=== PATIENT | male | born 1975 | race African-American/Black ===

== ENCOUNTER 2019-02-09 08:31 | Day surgery (SDC) | payer BC ==
[2019-02-09 08:39] LABS: Absolute Lymphocytes (CBC) 2.2 K/uL (0.7-4.9); Basophils % 0.6 % (0-1.3); Eosinophils % 4.5 % (0-4.4); Hematocrit 47.5 % (39.6-49.0); Lymphocytes % 35.3 % (15.3-44.8); MPV 8.8 fL (7.6-11.3); Monocytes % 12.4 % (3.3-12.3)
[2019-02-09 09:08] LABS: Potassium 4.7 mmol/L (3.5-5.1)
--- NOTE | 2019-02-09 09:13 | RAD REPORT ---
EXAM DESCRIPTION: RAD - Chest Pa And Lat (2 Views) - 02/09/2019 8:31 am CLINICAL HISTORY: Preop chest, pending soft tissue mass removal from the left leg COMPARISON: February 2010 TECHNIQUE: PA and lateral views of the chest were obtained. FINDINGS: The lungs are clear. Heart size is normal and central vasculature is within normal limit s. No pleural effusion or pneumothorax seen. No acute bony finding noted. No aortic abnormality. No suspicious change from comparison. IMPRESSION: No acute cardiopulmonary process.
[2019-02-09] MEDS ORDERED: LABETALOL HCL 100 MG/20 ML ONE (09:14)
[2019-02-09] MEDS ORDERED: CEFAZOLIN/SWI 1gm 1 GM/10 ML SYR ONE (09:16)
[2019-02-09] MEDS ORDERED: Ringers Lactate 1,000 ML IV ONE (09:16)
[2019-02-09] MEDS ORDERED: BUPIVACA 0.5%/EPI 0.0005%/PF 10 ML VIAL IJ ONE (10:07)
[2019-02-09] MEDS ORDERED: MIDAZOLAM HCL 2 MG/2 ML INJ ONE (10:15)
[2019-02-09] MEDS ORDERED: PROPOFOL 200 MG/20 ML VIAL IV ONE (10:15)
[2019-02-09] MEDS ORDERED: LIDOCAINE 2% MPF 5 ML VIAL ONE (10:15)
[2019-02-09] MEDS ORDERED: FENTANYL CITR 100 MCG/2 ML ONE (10:15)
[2019-02-09] MEDS ORDERED: ONDANSETRON 4 MG/2 ML VIAL ONE (10:15)
--- NOTE | 2019-02-09 15:45 | OP ---
Date of Procedure: 02/09/2019 Surgeon: Joshua Vargas MD Preoperative Diagnosis: Left thigh mass. Postoperative Diagnosis: Left thigh mass. Procedure: Wide excision, left thigh mass with layered closure, 5 x 3 cm. Estimated Blood Loss: Minimal. Specimen: Left thigh mass. Finding: As above. Anesthesia: General. Complications: None. Disposition: The patient tolerated the procedure in stable condition, taken to Recovery in good gene ral condition. Procedure In Detail: The patient was brought to the OR and placed in supine position. General anest hesia was begun. The patient was placed in left lithotomy position, prepped and draped in the usual sterile fashion. Then, 0.5% Marcaine infiltrated locally. A 15-blade was used to make a 5 x 3 cm in cision, length of the incision was 5 cm. Subcutaneous tissue divided and entire mass that was pedunc ulated, excised through the deep to the subcutaneous tissue and sent to Pathology. Wound irrigated. Bleeding controlled with cautery. Flaps created and then 2-0 chromic used to approximate the subcut aneous tissues. Then, 3-0 nylon used to close skin. Sterile dressing was applied. The patient was awakened and taken to Recovery in good general condition. Discharge Note: The patient will go to day surgery and home when stable. Disposition: Home. Condition: Stable. Discharge Instructions: Resume home medications and diet. Activity as tolerated. Remove outer dres sing in 2 days. Shower. Keep wound clean and dry. Follow up in my office in 2 weeks. Call for leslie ointment. Tylenol No. 3, 1 tablet p.o. q.4 p.r.n. pain. Keflex 500 mg p.o. q.6. /MODL Voice ID: [id number] Report ID: [id number]
--- NOTE | 2019-02-09 19:44 | EKG ---
Test Date: 2019-02-09 Test Time: 08:20:46 [employer] Tech: ANUJ MEASUREMENT RESULTS: Intervals: Rate: 63 [place]: 164 QRSD: 96 QT: 364 QTc: 372 [place]: P: 56 [place]: 164 QRS: 44 T: 16 INTERPRETIVE STATEMENTS: Normal sinus rhythm Nonspecific T wave abnormality Abnormal ECG Compared to ECG 01/24/2016 16:51:33 T-wave abnormality now present Electronically Signed On 02-09-19 19:40:37 CDT by Raheem Andre
== END 2019-02-09 11:45 | disposition home or self-care (01) ==
LOC: OR 08:31
PROVIDERS: ATTEND Surgery
PROC: 0JBM0ZZ Excision of Left Upper Leg Subcutaneous Tissue and Fascia, Open Approach (ICD-10-PCS; principal; 2019-02-09 10:00)
DX: R22.42 Localized swelling, mass and lump, left lower limb (principal); I10 Essential (primary) hypertension
CPT/HCPCS: 36415; 71046; 80048; 85025; 88304; 88305; 93005; J0690; J2250; J2405; J2704; J3010

== ENCOUNTER 2023-03-15 05:56 | Day surgery (SDC) | payer BC ==
[2023-03-13 11:20] LABS: Absolute Lymphocytes (CBC) 1.9 K/uL (0.7-4.9); Hematocrit 46.5 % (39.6-49.0); Lymphocytes % 35.9 % (15.3-44.8); MCV 86.2 fL (80-100); MPV 7.8 fL (7.6-11.3); RBC Red Blood Cell Count 5.39 M/uL (4.33-5.43)
[2023-03-13 11:34] LABS: Potassium 3.9 mEq/L (3.5-5.1)
--- NOTE | 2023-03-13 17:30 | EKG ---
Test Date: 2023-03-13 Test Time: 10:59:39 Route Service Manager: IRINA MEASUREMENT RESULTS: Intervals: Rate: 74 [place]: 152 QRSD: 96 QT: 358 QTc: 397 [place]: P: 67 [place]: 152 QRS: 60 T: -8 INTERPRETIVE STATEMENTS: Normal sinus rhythm Nonspecific T wave abnormality Abnormal ECG Compared to ECG 02/09/2019 08:20:46 No significant changes Electronically Signed On 03-13-23 17:30:16 CDT by Jose Enrique Felton
[2023-03-15] MEDS: Ringers Lactate 1,000 ML IV ONE (06:15)
[2023-03-15] MEDS ORDERED: CEFAZOLIN SODIUM 1 GM/VIAL ONE ×2 (06:25→07:30)
[2023-03-15] MEDS ORDERED: BUPIVACAINE 0.5% PF 10 ML VIAL ONE (06:49)
[2023-03-15] MEDS ORDERED: LIDOCAINE 2% MPF 5 ML VIAL ONE (07:30)
[2023-03-15] MEDS ORDERED: ONDANSETRON 4 MG/2 ML VIAL ONE (07:30)
[2023-03-15] MEDS ORDERED: propofoL 200 MG/20 ML VIAL IV ONE (07:30)
[2023-03-15] MEDS ORDERED: FENTANYL CITR 100 MCG/2 ML ONE (07:30)
[2023-03-15] MEDS ORDERED: MIDAZOLAM HCL 2 MG/2 ML INJ ONE (07:30)
[2023-03-15] MEDS ORDERED: dexAMETHasone 10 MG/ML VIAL ONE (08:06)
[2023-03-15] MEDS ORDERED: KETOROLAC 30 MG/ML INJ ONE (08:06)
[2023-03-15] MEDS: HYDROMORPHONE HCL 1 MG/ML INJ ONE ×4 (08:13→08:29)
--- NOTE | 2023-03-15 08:27 | OP ---
Date of Procedure: 03/15/2023 Surgeon: Angelito Galicia MD Preoperative Diagnosis: Left carpal tunnel syndrome. Postoperative Diagnosis: Left carpal tunnel syndrome. Procedure: Left open carpal tunnel release. Estimated Blood Loss: 3 cc no. Complications: There were no complications. Specimen: No pathology specimen sent. Indications For Operation: Mr. Dumont is a 47-year-old patient, who unfortunately has pain and probl ems with both his hands, especially while working. He has early fatigability and pain as well as wea kness. He was sent to Neurology where neurologist demonstrated bilateral carpal tunnel syndrome and risks, benefits, and alternatives of different methods of treating this have been discussed with him. He states he understands things as presented and wishes to proceed with left carpal tunnel release. It should be noted I was called this morning that he has crushed his left fifth digit, being treate d by other physicians and is in a dressing and the question is should we continue today or should we address the contralateral side. I discussed with the patient that I think that we will go head and j ust block out this area to avoid it from contaminating the field and continue with the left as his ri ght hand is quite functional and having a crushed little finger on 1 side and a new operation on the contralateral side could make ADLs difficult. He says that this is we would like to do and agrees to proceed. Other risks were discussed with him in detail. Description Of Procedure: The patient was taken to the operating room and placed in supine position. General anesthesia was obtained by staff. Following this, a well-padded tourniquet was placed on t he superior left arm. Left upper extremity was then prepped and draped in the usual sterile fashion with the exception of careful isolation of the dressing on his left fifth digit. Following this, the arm was then elevated, but not exsanguinated and tourniquet was raised. A standard incision was mad e, which parallels the thenar crease with slight ulnar deviation at the wrist crease. This was taken down carefully through the skin and some subcutaneous tissues. He was found to have enlarged veins with more bleeding that I would like. Thinking that we have a venous tourniquet, the tourniquet was then deflated at the second minute. Hemostasis was obtained using bipolar electrocautery and careful dissection was then proceeded down carefully through the palmar fascia. Any obstructions over the t ransverse carpal ligament were then gently swept to the side and a small stan was made in the transve rse carpal ligament. This was followed by release in a proximal to distal direction. This was perfo rmed until there were no constricting bands. It was then performed in a distal to proximal direction until there were no constricting bands including a good deal of volar forearm fascia. It was again checked to ensure that the nerve was in continuity and no constricting bands. At no time were any sh cait instruments placed outside the direct operative field. The skin was then closed using interrupte d nylon sutures. He was placed in a well-padded sterile dressing. He was taken to the recovery room in good condition. There were no complications. /ANA Voice ID: [id number] Report ID: [id number]
[2023-03-15] MEDS ORDERED: HYDROCODONE/APAP 10/325 TAB ONE (09:08)
[2023-03-15 09:34] VITALS: TEMP 97; O2SAT 99
[2023-03-15 09:36] VITALS: BP 135/94
== END 2023-03-15 09:25 | disposition home or self-care (01) ==
LOC: OR 05:56
PROVIDERS: ATTEND Orthopaedic Surgery
PROC: 01N50ZZ Release Median Nerve, Open Approach (ICD-10-PCS; principal; 2023-03-15 07:00)
DX: G56.02 Carpal tunnel syndrome, left upper limb (principal); R53.1 Weakness; M25.532 Pain in left wrist
CPT/HCPCS: 93005; 85025; 80048; 36415; 64721; J2704; J2001; J2250; J3010; J1100; J1170 ×2; J2405; J7120; J0690 ×2

== ENCOUNTER 2023-04-16 09:58 | Day surgery (SDC) | payer BC ==
[2023-04-12 10:34] LABS: Absolute Lymphocytes (CBC) 1.9 K/uL (0.7-4.9); Hematocrit 44.8 % (39.6-49.0); Lymphocytes % 35.7 % (15.3-44.8); MCV 87.5 fL (80-100); MPV 8.1 fL (7.6-11.3); Platelets 244 thou/uL (152-406); RBC Red Blood Cell Count 5.12 M/uL (4.33-5.43)
[2023-04-16] MEDS ORDERED: Ringers Lactate 1,000 ML IV ONE (10:20)
[2023-04-16] MEDS ORDERED: propofoL 200 MG/20 ML VIAL IV ONE ×2 (11:22→11:37)
[2023-04-16] MEDS ORDERED: LIDOCAINE 2% MPF 5 ML VIAL ONE (11:23)
[2023-04-16] MEDS ORDERED: MIDAZOLAM HCL 2 MG/2 ML INJ ONE (11:23)
[2023-04-16] MEDS ORDERED: FENTANYL CITR 100 MCG/2 ML ONE (11:23)
[2023-04-16] MEDS ORDERED: ONDANSETRON 4 MG/2 ML VIAL ONE (11:23)
[2023-04-16] MEDS ORDERED: dexAMETHasone 10 MG/ML VIAL ONE (11:41)
[2023-04-16] MEDS ORDERED: KETOROLAC 30 MG/ML INJ ONE (11:42)
[2023-04-16] MEDS: HYDROMORPHONE HCL 1 MG/ML INJ ONE ×2 (12:14→12:19)
[2023-04-16] MEDS ORDERED: HYDROMORPHONE HCL 1 MG/ML INJ ONE (12:42)
--- NOTE | 2023-04-16 13:12 | OP ---
Date of Procedure: 04/16/2023 Surgeon: Angelito Galicia MD Preoperative Diagnosis: Right carpal tunnel syndrome. Postoperative Diagnosis: Right carpal tunnel syndrome. Procedure: Right open carpal tunnel release. Estimated Blood Loss: Less than 3 cc. Complications: There were no complications. Specimen: No pathology specimen sent. Indications For Operation: Mr. Dumont is a 48-year-old patient who has been previously diagnosed wit h bilateral carpal tunnel syndrome which was affecting his hands especially at work with difficulty w ith activities of daily living. He has previously undergone a left open carpal tunnel release and di d well from that. However, he returns with significant symptoms and persistent symptoms with his rig ht side and risks, benefits, and alternatives of different methods of treating this were again discus sed with him. He opts for open carpal tunnel release again and specific risks regarding this were ag ain discussed with him. He states he understands things as presented and wishes to proceed. Description Of Procedure: Patient was taken to the operating room and placed in supine position. Ge neral anesthesia was obtained by staff. Following this, a well-padded tourniquet was placed on super ior right arm. Right upper extremity was then prepped and draped in usual sterile fashion during the procedure. The arm was then elevated, but not exsanguinated. Tourniquet was raised. A standard in cision was made which parallels the thenar crease with a slight ulnar deviation at the most distal wr ist crease. This was taken down carefully through skin only. Meticulous hemostasis being maintained using bipolar electrocautery. This leads down to the palmar fascia, which was then divided. Any ob structions of the transverse carpal ligament were gently swept to the side and a small stan was made in the transverse carpal ligament which allowed for visualization of underlying carpal tunnel structu res. Following this, the transverse carpal ligament was then divided in a proximal to distal directi on until there were no constricting bands. It was then divided in a distal to proximal direction unt il there were no constricting bands including a significant amount of volar forearm fascia. Followin g this, the nerve was examined. It was slightly purple, but it was definitely in continuity. After this, the tourniquet was dropped. The skin was closed using interrupted nylon sutures and the patien t was placed in a well-padded sterile dressing, awakened and taken to recovery room in good condition . There were no complications. SE/MODL Voice ID: [id number] Report ID: [id number]
[2023-04-16 14:04] VITALS: BP 155/98; TEMP 97.6; O2SAT 98
== END 2023-04-16 13:50 | disposition home or self-care (01) ==
LOC: OR 09:58
PROVIDERS: ATTEND Orthopaedic Surgery
PROC: 01N50ZZ Release Median Nerve, Open Approach (ICD-10-PCS; principal; 2023-04-16 11:30)
DX: G56.01 Carpal tunnel syndrome, right upper limb (principal); I10 Essential (primary) hypertension
CPT/HCPCS: 85025; 36415; 64721; J2704 ×2; J2001; J2250; J3010; J1100; J1170 ×2; J2405; J7120